=== PATIENT | female | born 1945 | race Caucasian/White ===

== ENCOUNTER 2023-12-13 10:04 | Emergency (ER) | payer MEDICARE, BC, SELFPAY ==
[2023-12-13 10:11] VITALS: BP 137/77; PULSE 81; RESP 14; TEMP 36.8; O2SAT 98; BMI 24.4
--- NOTE | 2023-12-13 10:46 | ED.GENADULT ---
HPI - General Adult General Chief complaint: Arrhythmia/Palpitations Stated complaint: Dizzy, elevated heartrate Time Seen by Provider: 12/13/23 10:28 Source: patient Mode of arrival: ambulatory Limitations: no limitations History of Present Illness HPI narrative: Patient is a 78-year-old female, generally healthy patient, presenting today with an episode of racing heart and dizziness. Patient states that approximately an hour ago she started feeling a little lightheaded and according to her fit bit, her pulse was 150 beats per minute. This sensation lasted several minutes and then abated. This has never happened to her before. She denied feeling any chest pain then or now. She was not short of breath. She denies any recent illness. She did state that she woke up feeling slightly lightheaded this morning but now is back to her baseline. Patient lives in [facility], is here visiting her daughter. She states that for the last 3 days she has been doing yard work for most of the day. She feels like she is likely dehydrated as she has not remembered to take frequent breaks and drink water. Patient runs regularly, has a history of glaucoma and osteoporosis. She is on glaucoma drops stand once weekly alendronate. She has no history of heart disease or lung disease. She does state that both her mother and her sister have a history is of atrial fibrillation. Related Data Home Medications Medication Instructions Recorded Confirmed alendronate 70 mg tablet 70 mg PO QWEEK 12/13/23 12/13/23 bimatoprost 0.01 % eye drops 1 drp ophthalmic (eye) DAILY 12/13/23 12/13/23 (Lumigan) Allergies Allergy/AdvReac Type Severity Reaction Status Date / Time No Known Drug Allergies Allergy Verified 12/13/23 11:06 Review of Systems Status of ROS: Reports: 10 or more systems reviewed and unremarkable except as noted in History and below PFSH PFS Social History Smoking Status: Never smoker How often do you have a drink containing alcohol: never AUDIT-C Alcohol total score: 0 Non-prescribed substance use: denies use Exam Narrative: Exam Narrative: Well-nourished well-developed patient in no acute distress. Alert and oriented. Answers questions appropriately. Mood and affect are appropriate. Thoughts are goal oriented and rational. No tangential or magical thinking noted. Patient speaks in full sentences without needing to catch her breath. Patient's vitals are normal. Pulse is 81. HEENT: Normocephalic atraumatic. Pupils are equally round reactive to light. Extraocular muscles are intact. Conjunctivae are moist without any icterus noted. Moist mucous membranes. Posterior pharynx is normal. Neck is soft without any lymphadenopathy or thyromegaly. No masses are appreciated. Cardiovascular: Heart is regular rate and rhythm S1 and S2 are present without any murmurs. Lungs: Clear to auscultation bilaterally no wheezes rhonchi or rales are appreciated. Patient takes deep breaths without any discomfort. Abdomen: Soft and nontender nondistended with normal bowel sounds. Extremities: Bilateral lower extremities are without edema. Normal DP and PT pulses. Skin: Well perfused without any obvious rashes. Const: Vital Signs, click to edit/add: Vital Signs - 24 hr 12/13/23 10:11 12/13/23 11:02 12/13/23 11:32 Temperature 98.2 F Pulse Rate 82 72 Pulse Rate [Pulse Oximeter] 81 Respiratory Rate 14 14 14 Blood Pressure 149/79 H 137/97 H Blood Pressure [Ri ght Upper Arm] 137/77 Pulse Oximetry 98 99 99 Oxygen Delivery Me thod Room Air Course Course ED Course: EKG, read by me, shows normal sinus rhythm with a pulse of 76. CBC shows mild hemoconcentration with a hemoglobin of 16.3, RBCs 5.21. Normal WBC in the remainder of CBC was also normal. IV established and patient received 1 L of normal saline. Chemistries are unremarkable, LFTs are unremarkable, normal troponin, normal TSH, unremarkable UA. Patient had no more episodes of dizziness or fast heartbeat while she was here. Vital Signs Vital signs: Initial Vital Signs Temperature 98.2 F 12/13/23 10:11 Temperature Source Temporal Artery Scan 12/13/23 10:11 Pulse Rate 81 12/13/23 10:11 Pulse Rhythm Regular 12/13/23 10:11 Respiratory Rate 14 12/13/23 10:11 Blood Pressure 137/77 12/13/23 10:11 Blood Pressure Mean 97 12/13/23 10:11 Blood Pressure Position Sitting 12/13/23 10:11 Pulse Oximetry 98 12/13/23 10:11 Oxygen Delivery Method Room Air 12/13/23 10:11 Vital Signs Temperature 98.2 F 12/13/23 10:11 Pulse Rate 81 12/13/23 10:11 Respiratory Rate 14 12/13/23 10:11 Blood Pressure 137/77 12/13/23 10:11 Pulse Oximetry 98 12/13/23 10:11 Oxygen Delivery Method Room Air 12/13/23 10:11 Temperature 98.2 F 12/13/23 10:11 Pulse Rate 72 12/13/23 11:32 Respiratory Rate 14 12/13/23 11:32 Blood Pressure 137/97 H 12/13/23 11:32 Pulse Oximetry 99 12/13/23 11:32 Oxygen Delivery Method Room Air 12/13/23 10:11 Medications Administered Medications: Discontinued Medications Generic Name Dose Route Start Last Admin Trade Name Freq PRN Reason Stop Dose Admin Sodium Chloride 1,000 mls @ 1,000 mls/hr 12/13/23 10:45 12/13/23 11:55 0.9 % Sodium Chloride 1000 Ml IV 12/13/23 11:44 Infused .Q1H CALISTA Infusion Medical Decision Making MDM Narrative Medical decision making narrative: 78-year-old female with a short episode of fast heartbeat and dizziness now resolved. Strong family history of atrial fibrillation. Patient certainly could have been a little dehydrated today. We discussed continued hydration, rest today. She will follow up with her primary care provider when she is back in [place] - she goes home tomorrow. Return to ER if this episode happens again. Lab Data Lab results reviewed: Yes I reviewed the patient's lab results Labs: Lab Results 12/13/23 12/13/23 Range/Units 10:50 11:20 WBC 8.43 (4.50-11.00) K/uL RBC 5.21 H (4.00-5.20) m/uL Hgb 16.3 H (12.0-16.0) gm/dL Hct 49.4 (33.0-51.0) % MCV 95 (80-100) fL MCH 31 (26-34) pg MCHC 33 (32-36) gm/dL RDW Coeff of Laura 13.0 (11.5-15.5) % Plt Count 252 (140-440) K/uL Neut % (Auto) 60.5 (42.0-72.0) % Lymph % (Auto) 30.7 (20-44) % [place] % (Auto) 7.5 (0.0-11.0) % Eos % (Auto) 0.6 (0.0-7.0) % Baso % (Auto) 0.5 (0.0-3.0) % Neut # (Auto) 5.10 (1.7-7.0) K/uL Lymph # (Auto) 2.59 (0.90-2.90) K/uL [place] # (Auto) 0.60 (0.00-0.90) K/UL Eos # (Auto) 0.05 (0.00-0.50) K/uL Baso # (Auto) 0.04 (0.00-0.30) K/uL Abs Immat Gran (auto) 0.02 (0.00-0.30) K/uL Imm/Tot Granulo (auto) 0.2 % Sodium 139 (135-149) mmol/L Potassium 4.3 (3.6-5.1) mmol/L Chloride 104 (96-114) mmol/L Carbon Dioxide 31 (20-32) mmol/L Anion Gap 4 L (7-15) mEq/L BUN 30 (7-30) mg/dL Creatinine 0.9 (0.5-1.5) mg/dL Estimated Creat Clear 41.33 Estimated GFR 66 ml/min Glucose 113 (60-115) mg/dL Calcium 9.1 (8.4-10.6) mg/dL Magnesium 2.0 (1.5-2.6) mg/dL Total Bilirubin 1.0 (0.1-1.5) mg/dL Direct Bilirubin 0.0 (0.0-0.5) mg/dL AST 36 H (12-35) U/L ALT 28 (4-35) U/L Alkaline Phosphatase 64 (40-150) U/L Troponin I < 0.01 L (0.01-0.04) ng/mL Total Protein 7.2 (6.0-8.3) g/dL Albumin 4.3 (3.3-5.0) g/dL TSH 1.600 (0.270-4.20) uIU/mL Urine Color Yellow (Yellow) Urine Appearance Clear (Clear) Urine pH 6.5 (5.0-8.5) Ur Specific [place] 1.015 (1.000-1.030) Urine Protein Negative (Negative) Urine Glucose (UA) Negative (Negative) Urine Ketones Negative (Negative) Urine Blood Trace-intact A (Negative) Urine Nitrite Negative (Negative) Urine Bilirubin Negative (Negative) Urine Urobilinogen 0.2 (0.2-1.0) Ur Leukocyte Esterase Trace A (Negative) Urine RBC 2-5 A (0-2) Urine WBC 2-5 (0-5) Ur Squamous Epith Cells Few (None-Few) Urine Bacteria Few A (None) ECG Data Attestation: I personally reviewed and interpreted this ECG as follows: Discharge Plan Discharge Clinical Impression: Dizziness, Fast heart beat Patient Disposition: Home, Self-Care Condition: Improved Additional Instructions: You will be sent home with all of your lab results today, feel free to share with your primary care provider. If this occurs again and does not go away within a couple of minutes return to the ER. If this occurs again once you are home, follow-up with your primary care provider to discuss potentially having heart monitor placed. Prescriptions: No Action alendronate 70 mg tablet 70 mg PO QWEEK Lumigan 0.01 % drops 1 drp ophthalmic (eye) DAILY Follow Up/Referrals: Provider,Not a Local [Primary Care Provider] - Stand Alone Forms: [employer] Info Instructions
[2023-12-13] MEDS: 0.9 % SODIUM CHLORIDE 1000 ml 1,000 ML IV (10:55)
[2023-12-13 11:02] VITALS: BP 149/79; PULSE 82; RESP 14; O2SAT 99
[2023-12-13 11:04] LABS: Basophils Absolute Auto 0.04 K/uL (0.00-0.30); Basophils Percent Auto 0.5 % (0.0-3.0); Eosinophils Absolute Auto 0.05 K/uL (0.00-0.50); Eosinophils Percent Auto 0.6 % (0.0-7.0); Hematocrit 49.4 % (33.0-51.0); Hemoglobin* 16.3 gm/dL (12.0-16.0); Immature Granulocytes Abs Auto 0.02 K/uL (0.00-0.30); Immature Granulocytes Pct Auto 0.2 %; Lymphocytes Absolute Auto 2.59 K/uL (0.90-2.90); Lymphocytes Percent Auto 30.7 % (20-44); Mean Corpuscular HGB Conc 33 gm/dL (32-36); Mean Corpuscular Hemoglobin 31 pg (26-34); Mean Corpuscular Volume 95 fL (80-100); Monocytes Percent Auto 7.5 % (0.0-11.0); Neutrophils Percent Auto 60.5 % (42.0-72.0); Platelet Count* 252 K/uL (140-440); Red Blood Count 5.21 m/uL (4.00-5.20); White Blood Count* 8.43 K/uL (4.50-11.00)
[2023-12-13 11:09] LABS: Slide Review Reflex No
[2023-12-13 11:16] LABS: Albumin* 4.3 g/dL (3.3-5.0); Chloride* 104 mmol/L (96-114)
[2023-12-13 11:17] LABS: Potassium* 4.3 mmol/L (3.6-5.1); Sodium* 139 mmol/L (135-149)
[2023-12-13 11:19] LABS: Anion Gap 4 mEq/L (7-15); Carbon Dioxide* 31 mmol/L (20-32); Creatinine* 0.9 mg/dL (0.5-1.5); Est. Creatinine Clearance* 41.33; Estimated Glomerular Filt Rate 66 ml/min
[2023-12-13 11:20] LABS: Alanine Aminotransferase* 28 U/L (4-35); Alkaline Phosphatase* 64 U/L (40-150); Aspartate Amino Transferase* 36 U/L (12-35); Blood Urea Nitrogen* 30 mg/dL (7-30); Calcium* 9.1 mg/dL (8.4-10.6); Glucose* 113 mg/dL (60-115); Total Protein* 7.2 g/dL (6.0-8.3)
[2023-12-13 11:32] VITALS: BP 137/97; PULSE 72; RESP 14; O2SAT 99
[2023-12-13 11:32] LABS: Troponin I* < 0.01 ng/mL (0.01-0.04)
[2023-12-13 11:41] LABS: Appearance Urine Clear (Clear); Bilirubin Urine Negative (Negative); Blood Urine Trace-intact (Negative); Color Urine Yellow (Yellow); Glucose Urine Negative (Negative); Ketones Urine Negative (Negative); Leukocyte Esterase Urine Trace (Negative); Nitrite Urine Negative (Negative); Protein Urine Negative (Negative); Specific Gravity Urine 1.015 (1.000-1.030); Urobilinogen Urine 0.2 (0.2-1.0); pH Urine 6.5 (5.0-8.5)
[2023-12-13 11:51] LABS: Bacteria Urine Few; Squamous Epithelial Cell Urine Few (None-Few)
[2023-12-13 12:34] VITALS: BP 137/77; PULSE 81; RESP 14; TEMP 36.8
== END 2023-12-13 12:35 | disposition home or self-care (01) ==
PROVIDERS: Emergency Provider Family Medicine
DX: R42 Dizziness and giddiness (principal); R00.0 Tachycardia, unspecified
CPT/HCPCS: 36415; 80048; 80076; 81001; 83735; 84443; 84484; 85025; 87086; 93005; 99284; J7030